=== PATIENT | female | born 1950 | race Caucasian/White ===

== ENCOUNTER 2024-03-19 07:03 | Day surgery (SDC) | payer MEDICARE, BC ==
[~2024-03-19 07:03] MED LIST: Povidone-Iodine 5% Sterile Ophth Soln 30 ML Bottle ONE; Proparacaine 0.5% Ophth Soln 15 ML Bottle ONE
[2024-03-19] MEDS ORDERED: Dexamethasone 4 MG/ML SDV ONE (07:25)
[2024-03-19] MEDS ORDERED: Ondansetron 4 MG/2 ML SDV IVPUSH PRN (07:30)
[2024-03-19] MEDS ORDERED: Acetaminophen/Codeine 300-30 MG Tab PO PRN (07:30)
[2024-03-19] MEDS ORDERED: Acetaminophen 325 MG Tab PO PRN (07:30)
[2024-03-19] MEDS: Proparacaine 0.5% Ophth Soln 15 ML Bottle EYELF ONE ×2 (07:51→08:47)
[2024-03-19] MEDS: Povidone-Iodine 5% Sterile Ophth Soln 30 ML Bottle EYELF ONE ×2 (07:52→08:48)
[2024-03-19] MEDS: Moxifloxacin 0.5% Ophth Soln 3 ML Bottle EYELF ONE (07:52)
[2024-03-19] MEDS: Tropicamide 1% Ophth Soln 15 ML Bottle EYELF ONE (07:53)
[2024-03-19] MEDS: Phenylephrine 10% Ophth Soln 5 ML Bot EYELF ONE (07:57)
[2024-03-19] MEDS: Cataract Ophth Solution EYELF ONE (07:58)
[2024-03-19] MEDS: Timolol Maleate 0.5% Ophth Soln 5 ML Bottle EYELF ONE (07:58)
[2024-03-19] MEDS: Sodium Chloride 0.9% 10 ML Syringe FLUSH PRN (07:58)
[2024-03-19] MEDS: Lidocaine 1% 30 ML SDV ONE (08:55)
[2024-03-19] MEDS: Vancomycin 500 MG SDV EYELF ONE (08:56)
[2024-03-19] MEDS: Apraclonidine 0.5% Ophth Soln 5 ML Bot EYELF ONE ×2 (08:56→09:02)
[2024-03-19] MEDS: Diclofenac Sodium 0.1% Ophth Soln 5 ML Bottle EYELF ONE ×2 (08:57→09:02)
[2024-03-19] MEDS: Dexamethasone/Neomycin/Polymyxin B Ophth Oint 3.5 GM Tube EYELF ONE ×2 (08:58→09:03)
== END 2024-03-19 09:40 | disposition home or self-care (01) ==
LOC: DL.SDS 07:03
PROVIDERS: ATTEND Ophthalmology
DX: H25.812 Combined forms of age-related cataract, left eye (principal); J45.909 Unspecified asthma, uncomplicated; E78.5 Hyperlipidemia, unspecified; I10 Essential (primary) hypertension; E03.9 Hypothyroidism, unspecified; E66.9 Obesity, unspecified; G47.00 Insomnia, unspecified; M81.0 Age-related osteoporosis without current pathological fracture; Z87.891 Personal history of nicotine dependence; Z79.890 Hormone replacement therapy; Z79.899 Other long term (current) drug therapy; Z88.0 Allergy status to penicillin; Z88.8 Allergy status to other drugs, medicaments and biological substances; Z68.32 Body mass index [BMI] 32.0-32.9, adult
CPT/HCPCS: A9270-GY; J3370; J3490

== ENCOUNTER 2024-04-02 07:14 | Day surgery (SDC) | payer MEDICARE, BC ==
[2024-04-02] MEDS: Proparacaine 0.5% Ophth Soln 15 ML Bottle EYERT ONE (07:10)
[2024-04-02] MEDS: Povidone-Iodine 5% Sterile Ophth Soln 30 ML Bottle EYERT ONE (07:11)
[2024-04-02] MEDS: Lidocaine 1% 30 ML SDV ONE (07:12)
[2024-04-02] MEDS: Vancomycin 500 MG SDV EYERT ONE (07:12)
[2024-04-02] MEDS: Apraclonidine 0.5% Ophth Soln 5 ML Bot EYERT ONE (07:13)
[2024-04-02] MEDS: Dexamethasone/Neomycin/Polymyxin B Ophth Oint 3.5 GM Tube EYERT ONE (07:14)
[2024-04-02] MEDS: Diclofenac Sodium 0.1% Ophth Soln 5 ML Bottle EYERT ONE (07:14)
[2024-04-02] MEDS ORDERED: Phenylephrine 10% Ophth Soln 5 ML Bot EYERT ONE (07:30)
[2024-04-02] MEDS ORDERED: Proparacaine 0.5% Ophth Soln 15 ML Bottle EYERT ONE (07:30)
[2024-04-02] MEDS ORDERED: Tropicamide 1% Ophth Soln 15 ML Bottle EYERT ONE (07:30)
[2024-04-02] MEDS ORDERED: Sodium Chloride 0.9% 10 ML Syringe FLUSH PRN (07:30)
[2024-04-02] MEDS ORDERED: Povidone-Iodine 5% Sterile Ophth Soln 30 ML Bottle EYERT ONE (07:30)
[2024-04-02] MEDS ORDERED: Ondansetron 4 MG/2 ML SDV IVPUSH PRN (07:30)
[2024-04-02] MEDS ORDERED: Acetaminophen 325 MG Tab PO PRN (07:30)
[2024-04-02] MEDS ORDERED: Timolol Maleate 0.5% Ophth Soln 5 ML Bottle EYERT ONE (07:30)
[2024-04-02] MEDS ORDERED: Moxifloxacin 0.5% Ophth Soln 3 ML Bottle EYERT ONE (07:30)
[2024-04-02] MEDS ORDERED: Acetaminophen/Codeine 300-30 MG Tab PO PRN (07:30)
[2024-04-02] MEDS ORDERED: Cataract Ophth Solution EYERT ONE (07:30)
== END 2024-04-02 07:40 | disposition home or self-care (01) ==
LOC: DL.SDS 07:14
PROVIDERS: ATTEND Ophthalmology
DX: H26.9 Unspecified cataract (principal); Z53.8 Procedure and treatment not carried out for other reasons
CPT/HCPCS: A9270; J3370; J3490

== ENCOUNTER 2024-05-07 06:25 | Day surgery (SDC) | payer MEDICARE, BC ==
[~2024-05-07 06:25] MED LIST changes: -Povidone-Iodine 5% Sterile Ophth Soln 30 ML Bottle ONE
[2024-05-07] MEDS ORDERED: Acetaminophen/Codeine 300-30 MG Tab PO PRN (06:30)
[2024-05-07] MEDS ORDERED: Acetaminophen 325 MG Tab PO PRN (06:30)
[2024-05-07] MEDS ORDERED: Ondansetron 4 MG/2 ML SDV IVPUSH PRN (06:30)
[2024-05-07] MEDS: Sodium Chloride 0.9% 10 ML Syringe FLUSH PRN (06:52)
[2024-05-07] MEDS: Proparacaine 0.5% Ophth Soln 15 ML Bottle EYERT ONE ×2 (07:23→07:49)
[2024-05-07] MEDS: Moxifloxacin 0.5% Ophth Soln 3 ML Bottle EYERT ONE (07:24)
[2024-05-07] MEDS: Povidone-Iodine 5% Sterile Ophth Soln 30 ML Bottle EYERT ONE ×2 (07:24→07:48)
[2024-05-07] MEDS: Phenylephrine 10% Ophth Soln 5 ML Bot EYERT ONE (07:26)
[2024-05-07] MEDS: Tropicamide 1% Ophth Soln 15 ML Bottle EYERT ONE (07:26)
[2024-05-07] MEDS: Cataract Ophth Solution EYERT ONE (07:27)
[2024-05-07] MEDS: Timolol Maleate 0.5% Ophth Soln 5 ML Bottle EYERT ONE (07:27)
[2024-05-07] MEDS: Lidocaine 1% 30 ML SDV ONE (07:47)
[2024-05-07] MEDS: Diclofenac Sodium 0.1% Ophth Soln 5 ML Bottle EYERT ONE (07:49)
[2024-05-07] MEDS: Apraclonidine 0.5% Ophth Soln 5 ML Bot EYERT ONE (07:49)
[2024-05-07] MEDS: Dexamethasone/Neomycin/Polymyxin B Ophth Oint 3.5 GM Tube EYERT ONE (07:50)
[2024-05-07] MEDS: Vancomycin 500 MG SDV EYERT ONE (07:50)
== END 2024-05-07 08:35 | disposition home or self-care (01) ==
LOC: DL.SDS 06:25
PROVIDERS: ATTEND Ophthalmology
DX: H25.811 Combined forms of age-related cataract, right eye (principal); E78.5 Hyperlipidemia, unspecified; I10 Essential (primary) hypertension; E66.811 Obesity, class 1; G47.00 Insomnia, unspecified; M81.0 Age-related osteoporosis without current pathological fracture; R74.8 Abnormal levels of other serum enzymes; E03.9 Hypothyroidism, unspecified; Z87.891 Personal history of nicotine dependence; Z79.890 Hormone replacement therapy; Z79.899 Other long term (current) drug therapy; Z88.0 Allergy status to penicillin; Z88.8 Allergy status to other drugs, medicaments and biological substances; Z68.32 Body mass index [BMI] 32.0-32.9, adult
CPT/HCPCS: 66984; A9270; J3370; V2632; J3490

== ENCOUNTER 2025-06-12 14:49 | Emergency (ER) | payer MEDICARE, BC ==
[2025-06-12] MEDS: Iopamidol 755 Mg/ML 100 ML Bottle IVPUSH ONE (14:57)
[2025-06-12 15:12] LABS: O2 DELIVERY DEVICE NASAL CANNULA
[2025-06-12 15:20] LABS: BASE EXCESS VENOUS -0.2 mmol/l ((-2)-(+3)); BICARBONATE,VENOUS 25 mmol/l (19-25); O2 SATURATION VENOUS 91.7 % (60-80); PCO2 VENOUS 47 mmHg (41-51); PH,VENOUS 7.35 (7.31-7.41); PO2 VENOUS 69 mmHg (35-42)
[2025-06-12 15:38] LABS: LACTIC ACID 1.1 mmol/L (0.4-2.0)
[2025-06-12 15:43] LABS: TSH ULTRASENSITIVE 1.4 uIU/mL (0.36-3.74)
[2025-06-12] MEDS: Furosemide 40 MG/4 ML VIAL IV ONE (15:59)
[2025-06-12 16:00] LABS: INR 1.0 (0.9-1.2); PTT,PARTIAL THROMBOPLSTIN TIME 24.5 SEC (22.0-34.0)
[2025-06-12] MEDS: Levofloxacin/Dextrose 5%-Water 750 MG in Premix Bag 1 BAG IV ONE (16:40)
== END 2025-06-12 18:57 ==
LOC: DL.ED 14:49
DX: J90 Pleural effusion, not elsewhere classified (principal); J80 Acute respiratory distress syndrome; E87.70 Fluid overload, unspecified; R79.89 Other specified abnormal findings of blood chemistry; I10 Essential (primary) hypertension; E03.9 Hypothyroidism, unspecified; Z88.0 Allergy status to penicillin; Z88.8 Allergy status to other drugs, medicaments and biological substances; Z79.890 Hormone replacement therapy; Z79.899 Other long term (current) drug therapy; Z86.16 Personal history of COVID-19; Z90.49 Acquired absence of other specified parts of digestive tract; Z90.710 Acquired absence of both cervix and uterus
CPT/HCPCS: 36415; 71275; 82803; 83605; 83735; 83880; 84145; 84443; 84484; 85379; 85610; 85730; 86140; 87040; 87428; 93010; 94660; 96365; 96375; 99285; J1938; J1956; Q9967

== ENCOUNTER 2025-07-11 11:42 | Emergency (ER) | payer MEDICARE, BC | END 2025-07-11 12:00 | disposition left against medical advice (07) | LOC: DL.ED 11:42 | DX: Z53.21 Procedure and treatment not carried out due to patient leaving prior to being seen by health care provider (principal) ==